=== PATIENT | female | born 1995 | race Caucasian/White ===

== ENCOUNTER 2020-09-08 12:18 | Observation (INO) | payer MEDICAID ==
[~2020-09-08] VITALS: Ht 162.6 cm; Wt 83.0 kg
[~2020-09-08 12:18] MED LIST: IBUP-2029; NITR-87
[2020-09-08] MEDS ORDERED: PREN1TAB78 MT (13:36)
[2020-09-08] MEDS ORDERED: FERR325T6 MT (13:36)
[2020-09-08] MEDS ORDERED: OMEG-31 MT (13:36)
[2020-09-08 15:12] LABS: BASOPHILS % 0.5 % (0.0-2.0); EOSINOPHILS % 1.7 % (0.0-5.0); HEMATOCRIT. 38.5 % (36.0-48.0); HEMOGLOBIN. 13.1 g/dL (12.0-16.0); LYMPHOCYTES % 16.8 % (20.0-50.0); MEAN CORPUSCULAR HEMOGLOBIN 30.5 pg (28.0-32.0); MEAN CORPUSCULAR VOLUME 89.8 fL (81.0-99.0); MEAN PLATELET VOLUME 8.9 fl (7.4-10.4); MONOCYTES % 5.8 % (2.0-8.0); NEUTROPHILS % 75.2 % (40.0-76.0); PLATELET 264 x1000/uL (130-400); RED BLOOD CELL COUNT 4.29 mill/uL (4.2-5.4); RED CELL DISTRIBUTION WIDTH 13.3 % (11.6-14.6)
[2020-09-08 15:16] LABS: CLARITY URINE CLEAR (CLEAR); COLOR URINE YELLOW (YELLOW); KETONES URINE NEGATIVE (NEGATIVE); LEUKOCYTE ESTERASE URINE NEGATIVE (NEGATIVE); NITRITE URINE NEGATIVE (NEGATIVE); OCCULT BLOOD URINE NEGATIVE (NEGATIVE); PROTEIN URINE NEGATIVE (NEGATIVE); UROBILINOGEN URINE 0.2 E.U./dL (0.2-1.0)
[2020-09-08 15:25] LABS: D-DIMER 0.92 mg/L FEU (<0.50); INR 0.9; PARTIAL THROMBOPLASTIN TIME 24.8 sec (23.4-31.0); PROTHROMBIN TIME 9.8 sec (9.6-11.0)
[2020-09-08 15:26] LABS: CHLORIDE 104 mEq/L (98-107)
== END 2020-09-08 16:10 | disposition home or self-care (01) ==
LOC: 8 EST LDRP 12:18
PROVIDERS: ADMIT Obstetrics & Gynecology; ATTEND Obstetrics & Gynecology
DX: O13.3 Gestational [pregnancy-induced] hypertension without significant proteinuria, third trimester (principal); Z3A.30 30 weeks gestation of pregnancy
CPT/HCPCS: 36415; 59025; 76805; 76818; 80053; 81003; 84550; 85025; 85379; 85384; 85610; 85730; G0378; 99281

== ENCOUNTER 2020-09-15 15:15 | Inpatient (IN) | payer MEDICAID ==
[~2020-09-15] VITALS: Ht 162.6 cm; Wt 82.6 kg
[~2020-09-15 15:15] MED LIST changes: +FERR325T6 MT; -IBUP-2029; -NITR-87; +OMEG-31 MT; +PREN1TAB78 MT
[2020-09-15] MEDS ORDERED: BETAMETHASONE ACET/BETAMET 30 MG/5 ML VIAL IM NR (16:00)
[2020-09-15 16:06] LABS: BASOPHILS % 0.7 % (0.0-2.0); CLARITY URINE CLOUDY (CLEAR); COLOR URINE YELLOW (YELLOW); EOSINOPHILS % 1.7 % (0.0-5.0); HEMATOCRIT. 37.8 % (36.0-48.0); KETONES URINE TRACE (NEGATIVE); LEUKOCYTE ESTERASE URINE NEGATIVE (NEGATIVE); LYMPHOCYTES % 21.1 % (20.0-50.0); MEAN CORPUSCULAR HEMOGLOBIN 30.7 pg (28.0-32.0); MEAN CORPUSCULAR VOLUME 89.3 fL (81.0-99.0); MEAN PLATELET VOLUME 9.2 fl (7.4-10.4); MONOCYTES % 7.6 % (2.0-8.0); NEUTROPHILS % 68.9 % (40.0-76.0); NITRITE URINE NEGATIVE (NEGATIVE); OCCULT BLOOD URINE NEGATIVE (NEGATIVE); PH URINE 6.5 (4.5-8.0); PLATELET 230 x1000/uL (130-400); PROTEIN URINE TRACE (NEGATIVE); RED BLOOD CELL COUNT 4.24 mill/uL (4.2-5.4); RED CELL DISTRIBUTION WIDTH 13.7 % (11.6-14.6); SPECIFIC GRAVITY URINE 1.023 (1.005-1.030); UROBILINOGEN URINE 0.2 E.U./dL (0.2-1.0)
[2020-09-15 16:17] LABS: D-DIMER 0.82 mg/L FEU (<0.50); INR 0.9; PARTIAL THROMBOPLASTIN TIME 24.3 sec (23.4-31.0); PROTHROMBIN TIME 9.6 sec (9.6-11.0)
[2020-09-15 16:24] LABS: CHLORIDE 107 mEq/L (98-107)
[2020-09-15] MEDS: MAGNESIUM 20 G PREMIX (L & D) 500 ML IV SCH (20:28)
[2020-09-15] MEDS: LACTATED RINGERS 1,000 ML IV SCH (23:45)
[2020-09-16 04:49] VITALS: BP 124/72
[2020-09-16] MEDS: MAGNESIUM 20 G PREMIX (L & D) 500 ML IV SCH (04:49)
[2020-09-16] MEDS: LACTATED RINGERS 1,000 ML IV SCH (08:04)
[2020-09-16] MEDS ORDERED: BETAMETHASONE ACET/BETAMET 30 MG/5 ML VIAL IM ONE (16:00)
== END 2020-09-16 16:15 | disposition home or self-care (01) | DRG 566 ==
LOC: INTOOBSV 15:15 → OBSVTOIN 15:15 → 8 EST LDRP 15:15
PROVIDERS: ADMIT Obstetrics & Gynecology; ATTEND Obstetrics & Gynecology
DX: O14.03 Mild to moderate pre-eclampsia, third trimester (principal); Z3A.31 31 weeks gestation of pregnancy; Z79.899 Other long term (current) drug therapy
CPT/HCPCS: 36415; 80053; 81003; 83735; 84550; 85025; 85379; 85384; 96360; 96361; 96372; 99281; J0702; J3475; J7120

== ENCOUNTER 2020-10-14 11:04 | Observation (INO) | payer MEDICAID ==
[~2020-10-14] VITALS: Ht 160 cm; Wt 88.5 kg
[2020-10-14 11:52] LABS: CLARITY URINE CLOUDY (CLEAR); COLOR URINE YELLOW (YELLOW); KETONES URINE NEGATIVE (NEGATIVE); LEUKOCYTE ESTERASE URINE TRACE (NEGATIVE); NITRITE URINE NEGATIVE (NEGATIVE); OCCULT BLOOD URINE NEGATIVE (NEGATIVE); PH URINE 6.5 (4.5-8.0); PROTEIN URINE TRACE (NEGATIVE); SPECIFIC GRAVITY URINE 1.013 (1.005-1.030); UROBILINOGEN URINE 0.2 E.U./dL (0.2-1.0)
[2020-10-14 11:56] LABS: HEMATOCRIT 38.7 % (36.0-48.0); HEMOGLOBIN 13.1 g/dL (12.0-16.0); MEAN CORPUSCULAR HEMOGLOBIN 30.9 pg (28.0-32.0); MEAN CORPUSCULAR VOLUME 91.3 fL (81.0-99.0); PLATELET 200 x1000/uL (130-400); RED BLOOD CELL COUNT 4.24 mill/uL (4.2-5.4); RED CELL DISTRIBUTION WIDTH 14.1 % (11.6-14.6)
[2020-10-14 11:58] LABS: CHLORIDE 106 mEq/L (98-107)
[2020-10-14 12:41] LABS: D-DIMER 1.03 mg/L FEU (<0.50); INR 0.9; PARTIAL THROMBOPLASTIN TIME 25.9 sec (23.4-31.0); PROTHROMBIN TIME 9.4 sec (9.6-11.0)
== END 2020-10-14 15:00 | disposition home or self-care (01) ==
LOC: 8 EST LDRP 11:04
PROVIDERS: ADMIT Obstetrics & Gynecology; ATTEND Obstetrics & Gynecology
DX: O13.3 Gestational [pregnancy-induced] hypertension without significant proteinuria, third trimester (principal); Z3A.35 35 weeks gestation of pregnancy
CPT/HCPCS: 36415; 59025; 76805; 76818; 80053; 81003; 82575; 84550; 85027; 85379; 85384; 85610; 85730; G0378; 99281